=== PATIENT | male | born 1950 | race Caucasian/White ===

== ENCOUNTER 2016-11-30 14:21 | Emergency (ER) | payer OTHER ==
[2016-11-30 14:34] VITALS: BP 112/81; PULSE 82; TEMP 98.4; BMI 32.3
--- NOTE | 2016-11-30 15:40 | PDOC ---
History of Present Illness - General Chief Complaint: Rash Stated Complaint: RASH ON BODY Time Seen by Provider: 11/30/16 15:01 History Source: Patient Exam Limitations: No Limitations - History of Present Illness Initial Comments: 11/30/16 15:33 66 yr male with rash to left side of neck, back started yesterday. Pt states he felt burning sensation to the area and flu like the past 3 days. no chest pain no shortness of breath no ear or throat pain. Past History - Past Medical History Allergies/Adverse Reactions: Allergies Allergy/AdvReac Type Severity Reaction Status Date / Time No Known Drug Allergies Allergy Verified 11/30/16 14:26 Home Medications: Ambulatory Orders Acyclovir [Zovirax -] 800 mg PO QID #20 tablet 11/30/16 Prednisone [Deltasone -] 40 mg PO DAILY #10 tablet 11/30/16 Tamsulosin HCl [Flomax] 0.4 mg PO DAILY 11/30/16 Anemia: No Asthma: No Cancer: No Cardiac Disorders: No CVA: No COPD: No CHF: No Dementia: No Diabetes: No GI Disorders: No Disorders: No HTN: No Hypercholesterolemia: No Liver Disease: No Seizures: No Thyroid Disease: No Other medical history: prostate problem - Surgical History Abdominal Surgery: No Appendectomy: No Cardiac Surgery: No Cholecystectomy: No Lung Surgery: No Neurologic Surgery: No Orthopedic Surgery: No - Psycho/Social/Smoking Cessation Hx Suicidal Ideation: No Smoking History: Former smoker Have you smoked in the past 12 months: No If you are a former smoker, when did you quit?: 45 years ago Information on smoking cessation initiated: No Hx Alcohol Use: No Drug/Substance Use Hx: No Hx Substance Use Treatment: No *Physical Exam - Vital Signs Last Vital Signs Temp Pulse Resp BP Pulse Ox 98.4 F 82 16 112/81 97 11/30/16 14:27 11/30/16 14:27 11/30/16 14:27 11/30/16 14:27 11/30/16 14:27 - Physical Exam General Appearance: Yes: Nourished, Appropriately Dressed HEENT: positive: EOMI, NOE, Normal ENT Inspection, TMs Normal, Pharynx Normal Neck: positive: Supple Respiratory/Chest: positive: Lungs Clear, Normal Breath Sounds Cardiovascular: positive: Regular Rhythm, Regular Rate Musculoskeletal: positive: Normal Inspection Extremity: positive: Normal Capillary Refill, Normal Inspection Integumentary: positive: Other (left lateral neck to behind scapula around under the neck not crossing midline with multiple red vesicular lesions ) Neurologic: positive: Fully Oriented, Alert, Normal Mood/Affect, Normal Response , Motor Strength 5/5 *DC/Admit/Observation/Transfer Diagnosis at time of Disposition: Herpes zoster Qualifiers: Herpes zoster complications: without complications Qualified Code(s): B02.9 - Zoster without complications - Prescriptions Prescriptions: Prednisone [Deltasone -] 40 mg PO DAILY #10 tablet Acyclovir [Zovirax -] 800 mg PO QID #20 tablet - Referrals Referrals: Matthias Vernon MD [Primary Care Provider] - - Patient Instructions Printed Discharge Instructions: DI for Shingles Additional Instructions: follow with your doctor in 3-5 days for follow up get pleanty of rest avoid crowds, stores small children, persons or elderly take the medications as prescribed return if any rash to face or eye or any other concerns Print Language: FIJIAN - Post Discharge Activity Work/School Note: Back to Work
[2016-11-30] MEDS ORDERED: ACETAMINOPHEN 325 MG TABLET (FP) PO ONE (15:43)
[2016-11-30] MEDS ORDERED: ACETAMINOPHEN 325 MG TABLET (FP) ONE (15:44)
== END 2016-11-30 15:46 | disposition home or self-care (01) ==
LOC: JERFT 14:21
DX: B02.9 Zoster without complications (principal); Z87.891 Personal history of nicotine dependence
CPT/HCPCS: 99281-25

== ENCOUNTER 2019-05-24 15:10 | Emergency (ER) | payer OTHER, MEDICARE ==
[2019-05-24] MEDS ORDERED: DIPHTH,PERTUSS(ACELL),TET 0.5 ML DISP.SYRIN IM ONE ×2 (15:17→15:23)
--- NOTE | 2019-05-24 15:17 | PDOC ---
Rapid Medical Evaluation Medical Evaluation: Allergies Allergy/AdvReac Type Severity Reaction Status Date / Time No Known Drug Allergies Allergy Verified 11/30/16 14:26 I have performed a brief in-person evaluation of this patient. The patient presents with a chief complaint of: lac L index finger today after cutting himself with coffee machine while working at [employer]; uncertain of last tetanus Pertinent physical exam findings: Superficial linear around 1 cm lac to volar aspect of L index I have ordered the following: Tetanus The patient will proceed to the ED for further evaluation. 05/24/19 15:15
[2019-05-24 15:18] VITALS: BP 137/85; PULSE 70; TEMP 98.3; BMI 32.3
--- NOTE | 2019-05-24 16:21 | PDOC ---
History of Present Illness - General Chief Complaint: Injury Stated Complaint: LT. HAND LACERATION Time Seen by Provider: 05/24/19 15:15 History Source: Patient Exam Limitations: Clinical Condition - History of Present Illness Initial Comments: 05/24/19 16:22 Patient with no significant past medical history present with complaint of laceration to left index finger status post cleaning the coffee pot and accidentally cutting his left finger at work this afternoon. Patient does not recall last tetanus vaccine Occurred: reports: just prior to arrival Past History - Past Medical History Allergies/Adverse Reactions: Allergies Allergy/AdvReac Type Severity Reaction Status Date / Time No Known Drug Allergies Allergy Verified 05/24/19 15:18 Home Medications: Ambulatory Orders Acyclovir [Zovirax -] 800 mg PO QID #20 tablet 11/30/16 Tamsulosin HCl [Flomax] 0.4 mg PO DAILY 11/30/16 predniSONE [Deltasone -] 40 mg PO DAILY #10 tablet 11/30/16 Cephalexin Monohydrate [Keflex -] 500 mg PO BID 7 Days #14 capsule 05/24/19 Ibuprofen 600 mg PO Q8H PRN #20 tablet 05/24/19 Anemia: No Asthma: No Cancer: No Cardiac Disorders: No CVA: No COPD: No CHF: No Dementia: No Diabetes: No GI Disorders: No Disorders: (ENLARGED PROSTATE) HTN: No Hypercholesterolemia: No Liver Disease: No Seizures: No Thyroid Disease: No - Surgical History Abdominal Surgery: No Appendectomy: No Cardiac Surgery: No Cholecystectomy: No Lung Surgery: No Neurologic Surgery: No Orthopedic Surgery: No - Suicide/Smoking/Psychosocial Hx Smoking History: Never smoked Have you smoked in the past 12 months: No If you are a former smoker, when did you quit?: 45 years ago Hx Alcohol Use: No Drug/Substance Use Hx: No Hx Substance Use Treatment: No Review of Systems - Review of Systems Able to Perform ROS?: Yes Is the patient limited Iraqi proficient: No Constitutional: No: Weakness HEENTM: No: Symptoms Reported Respiratory: No: Symptoms reported Cardiac (ROS): No: Symptoms Reported ABD/GI: No: Symptoms Reported Musculoskeletal: Yes: Symptoms Reported, See HPI, Muscle Pain (left index finger pain) Integumentary: Yes: Symptoms Reported, See HPI, Other (laceration to DIP of left index finger) Neurological: No: Symptoms reported, Numbness, Paresthesia, Tingling, Weakness All Other Systems: Reviewed and Negative *Physical Exam - Vital Signs Last Vital Signs Temp Pulse Resp BP Pulse Ox 98.3 F 70 16 137/85 96 05/24/19 15:15 05/24/19 15:15 05/24/19 15:15 05/24/19 15:15 05/24/19 15:15 - Physical Exam Comments: 05/24/19 16:27 GENERAL: Well developed, well nourished. Awake and alert. No acute distress. PULMONARY: No evidence of respiratory distress. MUSCULOSKELETAL : mild tenderness plantar aspect of DIP of left index finger over 2 cm laceration he IP of left index finger. No bony deformities . Free range of motion of left index finger. 5 out of 5 muscle strength to left index finger SKIN: Warm and dry. Normal capillary refill. 2 cm superficial linear horizontal laceration over DIP left index finger with minimal bleeding. NEUROLOGICAL: Alert, awake, appropriate. No motor deficits in the lower extremities. Gait is normal without ataxia. PSYCHIATRIC: Cooperative. Good eye contact. Appropriate mood and affect. General Appearance: Yes: Nourished, Appropriately Dressed. No: Apparent Distress Procedures - Laceration/Wound Repair Left Anterior Distal Finger 2nd digit Wound Length: to 2.5 cm (2cm) Wound Explored: clean, no foreign body present Wound's Depth, Shape: superficial, into muscle, linear Irrigated w/ Saline: Yes Betadine Prep: Yes Anesthesia: 1% Lidocaine Amount of Anesthetic (ccs): 1 Wound Repaired With: Sutures Suture Size/Type: 4:0, nylon Number of Sutures: 3 Layer Closure: No Sterile Dressing Applied: Yes Splint Applied: No Sling Applied: No Progress: 05/24/19 16:26 Wound cleaned with Betadine and irrigated with normal saline. Wound closed with 3 4-0 nylon interrupted sutures after area infiltrated with 1 mL 1% lidocaine. Patient tolerated procedure well. Bacitracin apply to wound and wound covered with adhesive bandage. Tetanus vaccine given by nurse. ED Treatment Course - Medications Given in the ED: ED Medications Discontinued Medications Generic Name Dose Route Start Last Admin Trade Name Freq PRN Reason Stop Dose Admin Diphtheria/Tetanus/Acell Pertussis 0.5 ml 05/24/19 15:17 05/24/19 15:26 Boostrix - IM 05/24/19 15:18 0.5 ml .ONCE ONE Administration Medical Decision Making - Medical Decision Making 05/24/19 16:22 Patient with no significant past medical history present with complaint of laceration to left index finger status post cleaning the coffee pot and accidentally cutting his left finger at work this afternoon. Patient does not recall last tetanus vaccine Exam significant for 2 cm superficial linear laceration to IP joint of DIP left index finger with minimal bleeding. Wound cleaned with Betadine and irrigated with normal saline. Wound closed with 3 4-0 nylon interrupted sutures after area infiltrated with 1 mL 1% lidocaine. Patient tolerated procedure well. Bacitracin apply to wound and wound covered with adhesive bandage. Tetanus vaccine given by nurse. Patient educated on home wound care is stable for discharge to follow-up in one week for suture removal *DC/Admit/Observation/Transfer Diagnosis at time of Disposition: Laceration of left index finger w/o foreign body w/o damage to nail Qualifiers: Encounter type: initial encounter Qualified Code(s): S61.211A - Laceration without foreign body of left index finger without damage to nail, initial encounter - Discharge Dispostion Disposition: HOME Condition at time of disposition: Stable Decision to Admit order: No - Prescriptions Prescriptions: Cephalexin Monohydrate [Keflex -] 500 mg PO BID 7 Days #14 capsule Ibuprofen 600 mg PO Q8H PRN #20 tablet PRN Reason: pain - Referrals - Patient Instructions Printed Discharge Instructions: DI for Laceration Repair, DI for Laceration Repair -- Simple Additional Instructions: Keep wound clean and dry for the next 24 hours. Apply bacitracin to wound twice a day and take prescribed antibiotics and finish it. Follow-up in one week for suture removal - Post Discharge Activity
== END 2019-05-24 16:33 | disposition home or self-care (01) ==
LOC: JERFT 15:10
PROC: 3E0234Z Introduction of Serum, Toxoid and Vaccine into Muscle, Percutaneous Approach (ICD-10-PCS; principal; 2019-05-24)
PROC: 0JQK0ZZ Repair Left Hand Subcutaneous Tissue and Fascia, Open Approach (ICD-10-PCS; 2019-05-24)
DX: S61.211A Laceration without foreign body of left index finger without damage to nail, initial encounter (principal); W22.8XXA Striking against or struck by other objects, initial encounter; Y93.G1 Activity, food preparation and clean up; Y92.511 Restaurant or cafe as the place of occurrence of the external cause; Y99.0 Civilian activity done for income or pay
CPT/HCPCS: 90715; 99281-25